=== PATIENT | female | born 1965 | race Caucasian/White ===

== ENCOUNTER 2018-09-20 06:57 | Day surgery (SDC) | payer BC ==
[2018-09-20] MEDS ORDERED: Midazolam 1 MG/ML 2 ML SDV ONE (07:22)
[2018-09-20] MEDS ORDERED: Propofol 200 MG/20 ML SDV ONE (07:22)
[2018-09-20] MEDS ORDERED: fentaNYL 100 MCG/2 ML SDV ONE (07:22)
[2018-09-20] MEDS ORDERED: Sodium Chloride 0.9% 1,000 ML IV SCH (07:45)
[2018-09-20 09:39] VITALS: BP 144/82
--- NOTE | 2018-09-20 10:17 | OR ---
DATE OF PROCEDURE: 09/20/2018 PROCEDURE: Colonoscopy. FINDINGS: Normal colonoscopy. PREOPERATIVE DIAGNOSIS: Screening colonoscopy/family history of colorectal polyps. POSTOPERATIVE DIAGNOSIS: Screening colonoscopy/family history of colorectal polyps. COMPLICATIONS: None. FACULTY ADMINISTRATOR: None. ANESTHESIA: MAC. RISKS: Risks, benefits, alternatives, and limitations including, but not limited to infection, bleeding, and perforation were explained to the patient, who wished to proceed. PROCEDURE IN DETAIL: The patient was placed in left lateral decubitus position. A digital rectal exam was performed without abnormality. The scope was introduced and advanced atraumatically to the ileocecal valve. The scope was brought back to the ascending, transverse, descending colon, and retroflexed. No masses. No polyps. No old or new blood. No areas of concern. No abnormalities on retroflex. The patient tolerated the procedure well. Osmani Griffiths MD /[id number]
== END 2018-09-20 09:55 | disposition home or self-care (01) ==
LOC: JP.SDS 06:57
PROVIDERS: ATTEND Surgery
DX: Z12.11 Encounter for screening for malignant neoplasm of colon (principal); Z86.010 Personal history of colon polyps; Z83.71 Family history of colonic polyps; Z88.5 Allergy status to narcotic agent
CPT/HCPCS: 45378; J2250; J2704; J3010; J7030

== ENCOUNTER 2021-10-21 08:28 | Day surgery (SDC) | payer BC, OTHER ==
[~2021-10-21 08:28] MED LIST: Midazolam 1 MG/ML 2 ML SDV ONE; Propofol 200 MG/20 ML SDV ONE; fentaNYL 100 MCG/2 ML SDV ONE
[2021-10-21] MEDS ORDERED: Sodium Chloride 0.9% 1,000 ML IV SCH (09:00)
[2021-10-21 11:24] VITALS: BP 133/78; PULSE 69
== END 2021-10-21 11:30 | disposition home or self-care (01) ==
LOC: JP.SDS 08:28
PROVIDERS: ATTEND Surgery
DX: Z12.11 Encounter for screening for malignant neoplasm of colon (principal); I10 Essential (primary) hypertension; E03.9 Hypothyroidism, unspecified; Z88.8 Allergy status to other drugs, medicaments and biological substances
CPT/HCPCS: J2250; J2704; J3010; J7030

== ENCOUNTER → 2025-03-21 | Day surgery (SDC) | payer BC, OTHER ==
[~2025-03-21] MED LIST changes: -fentaNYL 100 MCG/2 ML SDV ONE; +fentaNYL 50 MCG/ML SDV ONE
[2025-03-21] MEDS: Lactated Ringers 1,000 ML IV SCH (07:02)
[2025-03-21 09:24] VITALS: BP 141/80; PULSE 69
== END ==
LOC: JP.SDS 06:27
PROVIDERS: ATTEND Surgery
DX: Z12.11 Encounter for screening for malignant neoplasm of colon (principal); D12.3 Benign neoplasm of transverse colon; D12.5 Benign neoplasm of sigmoid colon
CPT/HCPCS: 00811; 45380; 45385; 88305; J2250; J2704; J3010; J7120